=== PATIENT | male | born 1980 | race Caucasian/White ===

== ENCOUNTER 2024-03-03 10:15 | Emergency (ER) | payer OTHER ==
[~2024-03-03] VITALS: Ht 170.2 cm; Wt 80.3 kg
[2024-03-03 10:29] VITALS: BP 153/89; PULSE 94; RESP 16; TEMP 98.2; O2SAT 99
[2024-03-03] MEDS: FLUORESCEIN OPTH STRIP 1 MG OP ONE (10:57)
[2024-03-03] MEDS: TETRACAINE HCL/PF 0.5% OPTH 4 ML BTL OP ONE (10:58)
[2024-03-03] MEDS ORDERED: TOMOMETER 1 DEV DEV MC ONE (11:00)
[2024-03-03] MEDS ORDERED: OFLO10SO2 LEFT EYE (11:15)
[2024-03-03 11:20] VITALS: BP 153/89; PULSE 94; RESP 16; TEMP 98.2; O2SAT 99
== END 2024-03-03 11:20 | disposition home or self-care (01) ==
LOC: MED 10:15
DX: H57.12 Ocular pain, left eye (principal); H57.89 Other specified disorders of eye and adnexa; Z79.2 Long term (current) use of antibiotics
CPT/HCPCS: 99283